=== PATIENT | female | born 1950 | race Caucasian/White ===

== ENCOUNTER 2016-10-25 10:24 | Emergency (ER) | payer OTHER ==
[2016-10-25 10:24] VITALS: BMI 32.9
[2016-10-25 11:08] VITALS: O2SAT 98
[2016-10-25] MEDS ORDERED: Sodium Chloride 0.9% 1,000 ML IV STA (11:27)
--- NOTE | 2016-10-25 11:36 | ED PDOC ---
Arrival/HPI - History of Present Illness Time/Duration: < week Symptom Onset: Gradual Symptom Course: Worsening Quality: Stabbing Severity Level: 8 Activities at Onset: Rest Context: Home <Lillian Davenport - Last Filed: 10/25/16 13:05> <Juancarlos Drummond DO - Last Filed: 10/25/16 13:57> - General Chief Complaint: Back Pain Time Seen by Provider: 10/25/16 10:50 - History of Present Illness Narrative History of Present Illness (Text): 10/25/16 11:30 66 F with PMHx of HTN, OA, DM1, hypothyroidism, and sarcoidosis on chronic steroids presents to [facility] ED with complaints of low back pain. Pt describes the pain as being sharp in quality, 8/10, non-radiating and right side dominant. Pt denies radiation into legs, denies numbness or tingling in lower extermities and denies bowel/bladder incontinence. Pt noted that for the past 4 days she has been experiencing progressively worsening LBP, for which she has been taking prednisone, ibuprofen, and naproxen without relief. Taking a deep breath exacerbates the pain, and shifting positions alleviates it. Pt has been lying in bed to experience relief. She denied undertaking any strenuous physical activities prior to development of symptoms. Pt admitted to generalized abdominal pains. Pt denied fever, chills, chest pains, palpitations, n/v/d/c or urinary symptoms. 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 Denied tobacco/etoh/ or drug abuse FamHx: noncontributory Meds: prednisone 10 mg, enalipril, ibuprofen, naproxen, metformin Allergies: ?toradol PMD; Dr. De La Cruz Pulrenea: Dr. Epperson (Lillian Davenport) Past Medical History - Infectious Disease Hx of Infectious Diseases: None - Cardiac Hx Hypertension: Yes - Pulmonary Hx Respiratory Disorders: Yes Other/Comment: SARCOIDOSIS - Neurological Other/Comment: NEUROPATHY - HEENT Hx HEENT Disorder: No - Endocrine/Metabolic Hx Diabetes Mellitus Type 2: Yes Hx Hypothyroidism: Yes - Musculoskeletal/Rheumatological Hx Osteoporosis: Yes - Gastrointestinal Hx Gastrointestinal Disorders: Yes Hx Gastroesophageal Reflux: Yes - Genitourinary/Gynecological Hx Genitourinary Disorders: No - Psychiatric Hx Depression: Yes Hx Substance Use: No - Anesthesia Hx Anesthesia: No Hx Anesthesia Reactions: No Hx Malignant Hyperthermia: No <Lillian Davenport - Last Filed: 10/25/16 13:05> Family/Social History Family/Social History: No Known Family HX Smoking Status: Never Smoked Hx Alcohol Use: No Hx Substance Use: No <Lillian Davenport - Last Filed: 10/25/16 13:05> Allergies/Home Meds <IssacLillian - Last Filed: 10/25/16 13:05> <Juancarlos Drummond DO - Last Filed: 10/25/16 13:57> Allergies/Adverse Reactions: Allergies ketorolac tromethamine [From Toradol] Allergy (Verified 10/25/16 10:35) HEADACHE pt reports insomnia after toradol Home Medications: Home Meds Medication Instructions Recorded Confirmed Levothyroxine Sodium [Synthroid] 75 mcg PO DAILY 12/03/15 10/25/16 metFORMIN [glucOPHAGE] 500 mg PO BID 12/03/15 10/25/16 Review of Systems - Review of Systems Constitutional: Normal Eyes: Normal ENT: Normal Respiratory: Normal Cardiovascular: Normal Gastrointestinal: Abdominal Pain. absent: Stool Changes Musculoskeletal: Back Pain Skin: Normal Neurological: Normal Endocrine: Normal Hemo/Lymphatic: Normal Psychiatric: Normal <Lillian Davenport - Last Filed: 10/25/16 13:05> Physical Exam Vital Signs Reviewed: Yes Temperature: Afebrile Blood Pressure: Normal Pulse: Regular Respiratory Rate: Normal Appearance: Positive for: Well-Appearing, Non-Toxic, Comfortable Pain Distress: None Mental Status: Positive for: Alert and Oriented X 3 - Systems Exam Head: Present: Atraumatic, Normocephalic Pupils: Present: PERRL Extroacular Muscles: Present: EOMI Conjunctiva: Present: Normal Mouth: Present: Moist Mucous Membranes Neck: Present: Normal Range of Motion Respiratory/Chest: Present: Clear to Auscultation, Good Air Exchange. No: Respiratory Distress, Accessory Muscle Use Cardiovascular: Present: Regular Rate and Rhythm, Normal S1, S2. No: Murmurs Abdomen: Present: Normal Bowel Sounds. No: Tenderness, Distention, Peritoneal Signs Back: Present: Paraspinal Tenderness, Pain with Leg Raise Upper Extremity: Present: Normal Inspection. No: Cyanosis, Edema Lower Extremity: Present: Normal Inspection. No: Edema Neurological: Present: GCS=15, CN II-XII Intact, Speech Normal Skin: Present: Warm, Dry, Normal Color. No: Rashes Psychiatric: Present: Alert, Oriented x 3, Normal Insight, Normal Concentration <Lillian Davenport - Last Filed: 10/25/16 13:05> Vital Signs Temp Pulse Resp BP Pulse Ox 10/25/16 13:50 78 17 131/80 98 10/25/16 13:00 79 18 144/77 98 10/25/16 12:17 98.3 F 77 18 132/77 98 10/25/16 11:45 78 17 136/79 98 10/25/16 11:13 97.8 F 76 18 136/66 98 10/25/16 10:36 97.8 F 76 17 136/66 98 Medical Decision Making Re-evaluation Time: 13:00 Reassessment Condition: Improving,but remains with symptoms - Lab Interpretations I have reviewed the lab results: Yes Interpretation: All labs normal - RAD Interpretation Batter Scaler: ED Physician - EKG Interpretation Interpreted by ED Physician: Yes <Lillian Davenport - Last Filed: 10/25/16 13:05> - Lab Interpretations I have reviewed the lab results: Yes <Juancarlos Drummond DO - Last Filed: 10/25/16 13:57> ED Course and Treatment: 10/25/16 11:40 66 F with PMHx of sarcoidosis, HTN, DM1 presents with LBP likely secondary to chronic steroid use for sarcoidosis. - CBC - CMP - UA - UCx - IVF - Morphine - Lumbosacral Xray - Reassess and dispo 10/25/16 13:05 Reassessed and pt found to be feeling better. Pt's routine labwork unremarkable. Vitals wnl. Pt's lmbosacral xray unremarkable no compression fractures noted. Pt likely to benefit from PT. We will recommend fu with PMD within 1 week. (Lillian Davenport) 10/25/16 13:00 Patient seen and examined with resident. Came up with treatment and disposition plan with resident. Impression: The patient is a 66 year old female who comes into the emergency department for evaluation of right sided lower back pain. Additional HPI details as noted by the resident. On examination the patient as some paraspinal tenderness with palpation. Differential Diagnosis include but are not limited to: fractures vs. chronic back pain Plan: -- EKG -- LS Spine X-ray -- Labs -- Urinalysis -- Morphine, Toradol and IV Fluids -- Reassess and disposition Progress Notes: EKG shows NSR at [address]/T wave changes, which is interpreted by me. X -ray is negative and lab work shows not acute findings. On re-evaluation, the patient feels better and is in no acute distress. Will discharge patient home. Results and plan were discussed with the patient, who expressed understanding. Patient is in agreement with plan to discharged home. Patient is stable for discharge. Patient was instructed to follow up with physician/clinic in 1-2 days or return if symptoms worsen or new concerning symptoms arise. (Juancarlos Drummond DO) - Lab Interpretations Lab Results: 10/25/16 11:30 10/25/16 11:30 Lab Results 10/25/16 11:30: WBC 7.2, RBC 4.64, Hgb 13.4, Hct 38.4, MCV 82.8, MCH 28.9, MCHC 34.9, RDW 12.8, Plt Count 219, MPV 9.3, Gran % 74.6 H, Lymph % (Auto) 21.6 L, [place] % (Auto) 2.9, Eos % (Auto) 0.8 L, Baso % (Auto) 0.1, Gran # 5.39, Lymph # 1.6, [place] # 0.2, Eos # 0.1, Baso # 0.01, Sodium 139, Potassium 4.2, Chloride 102 , Carbon Dioxide 26, Anion Gap 15, BUN 20, Creatinine 0.7, Est GFR ( Amer ) > 60, Est GFR (Non-Af Amer) > 60, Random Glucose 167 H, Calcium 9.4, Total Bilirubin 0.5, AST 24, ALT 15, Alkaline Phosphatase 54, Total Protein 7.2, Albumin 4.1, Globulin 3.1, Albumin/Globulin Ratio 1.3, Urine Color Yellow, Urine Appearance Clear, Urine pH 6.0, Ur Specific [place] 1.010, Urine Protein Negative, Urine Glucose (UA) Negative, Urine Ketones Negative, Urine Blood Negative, Urine Nitrate Negative, Urine Bilirubin Negative, Urine Urobilinogen 0.2, Ur Leukocyte Esterase Negative - RAD Interpretation Narrative RAD Interpretations (Text): 10/25/16 13:13 No acute lumbosacral pathology. No compression fractures noted. (Lillian Davenport) Radiology Orders: 10/25/16 11:27 LS SPINE AP/LAT [RAD] Stat - EKG Interpretation EKG Interpretation (Text): 10/25/16 13:12 NSR @ 73bpm no ST changes (Lillian Davenport) - Medication Orders Current Medication Orders: Discontinued Medications Sodium Chloride (Sodium Chloride 0.9%) 1,000 mls @ 999 mls/hr IV .Q1H1M STA Stop: 10/25/16 12:27 Last Admin: 10/25/16 11:50 Dose: 999 MLS/HR eMAR Start Stop Document 10/25/16 11:50 SF (Rec: 10/25/16 11:50 SF [id number]) Intravenous Solution Start Date 10/25/16 Start Time 11:50 End Date 10/25/16 End time 12:51 Total Infusion Time 61 Ketorolac Tromethamine (Toradol) 30 mg IVP STAT STA Stop: 10/25/16 11:28 Last Admin: 10/25/16 11:48 Dose: Morphine Sulfate (Morphine) 2 mg IVP STAT STA Stop: 10/25/16 11:43 Last Admin: 10/25/16 11:48 Dose: 2 MG MAR Pain Assessment Document 10/25/16 11:48 SF (Rec: 10/25/16 11:49 SF [facility] [id number]) Pain Reassessment Is this a pain reassessment? Yes Sleep Is patient sleeping during reassessment? No Presence of Pain Presence of Pain Yes Pain Scale Used Pain Scale Used Numeric Location Left, Right or Bilateral Bilateral Upper or Lower Lower Pain Location Body Site Abdomen Description Description Constant Intensity of Pain at present 9 IVP Administration Document 10/25/16 11:48 SF (Rec: 10/25/16 11:49 SF [facility] [id number]) Charges for Administration # of IVP Administrations 1 <Lillian Davenport - Last Filed: 10/25/16 13:05> - Scribe Statement The provider has reviewed the documentation as recorded by the Scribe <Juancarlos Drummond DO - Last Filed: 10/25/16 13:57> - Scribe Statement Tex Gardiner Provider Scribe Attestation: All medical record entries made by the Scribe were at my direction and personally dictated by me. I have reviewed the chart and agree that the record accurately reflects my personal performance of the history, physical exam, medical decision making, and the department course for this patient. I have also personally directed, reviewed, and agree with the discharge instructions and disposition. (Juancarlos Drummond DO) Disposition/Present on Arrival - Present on Arrival Any Indicators Present on Arrival: Yes History of DVT/PE: No History of Uncontrolled Diabetes: Yes Urinary Catheter: No History of Decub. Ulcer: No History Surgical Site Infection Following: None - Disposition Have Diagnosis and Disposition been Completed?: Yes Disposition Time: 13:00 <Lillian Davenport - Last Filed: 10/25/16 13:05> <Juancarlos Drummond DO - Last Filed: 10/25/16 13:57> - Disposition Diagnosis: Low back pain Patient Problems: Current Active Problems Problem Status Diagnosed Low back pain Acute Discharge Instructions (ExitCare): Acute Low Back Pain (ED) Prescriptions: oxyCODONE/Acetaminophen [Percocet 5/325 mg Tab] 1 ea PO Q8 PRN #9 tab PRN Reason: Pain, Severe (8-10) Referrals: Renny De La Cruz MD [Primary Care Provider] - Follow up with primary
[2016-10-25] MEDS ORDERED: Morphine 2 mg/ml ISec IVP STA (11:42)
[2016-10-25 11:54] LABS: ADD MANUAL DIFF? NO
[2016-10-25 11:58] LABS: URINE BILIRUBIN NEGATIVE (NEGATIVE); URINE BLOOD NEGATIVE (NEGATIVE); URINE GLUCOSE (UA) NEGATIVE (NEGATIVE); URINE KETONE NEGATIVE (NEGATIVE); URINE LEUKOCYTE ESTERASE NEGATIVE Leu/uL (NEGATIVE); URINE PROTEIN NEGATIVE mg/dL (<30 mg/dL); URINE UROBILINOGEN 0.2 E.U./dL (<1 E.U./dL)
[2016-10-25 11:59] LABS: BASO # 0.01 [, K/mm3] (0.0-2.0); BASO % 0.1 % (0.0-3.0); EOS # 0.1 (0.0-0.7); EOS % 0.8 % (1.5-5.0); GRAN # 5.39 (1.4-6.5); GRAN % 74.6 % (50.0-68.0); HEMATOCRIT 38.4 % (36.0-48.0); LYMPH # 1.6 (1.2-3.4); LYMPH % 21.6 % (22.0-35.0); MEAN CELL VOLUME 82.8 fL (80.0-105.0); MEAN CORPUSCULAR HEMOGLOBIN 28.9 pg (25.0-35.0); MEAN CORPUSCULAR HGB CONC 34.9 g/dl (31.0-37.0); MEAN PLATELET VOLUME 9.3 fl (7.0-11.0); MONO # 0.2 (0.1-0.6); MONO % 2.9 % (1.0-6.0); PLATELET COUNT 219 [, 10^3/uL] (120.0-450.0); RED CELL DISTRIBUTION WIDTH 12.8 % (11.5-14.5); WHITE BLOOD COUNT 7.2 [, 10^3/ul] (4.5-11.0)
[2016-10-25 12:01] LABS: URINE APPEARANCE CLEAR (CLEAR); URINE COLOR YELLOW (YELLOW)
[2016-10-25 12:11] LABS: ALB/GLOB RATIO 1.3 (1.1-1.8); ALKALINE PHOSPHATASE 54 U/L (38-133); ALT/SGPT 15 U/L (7-56); AST/SGOT 24 U/L (15-39); BILIRUBIN,TOTAL 0.5 mg/dL (0.2-1.3); BLOOD UREA NITROGEN 20 mg/dL (7-21); CALCIUM 9.4 mg/dL (8.4-10.5); CARBON DIOXIDE 26 mmol/L (21-33); CHLORIDE 102 mmol/L (98-107); GFR AFRICAN-AMERICAN > 60; GLUCOSE,RANDOM 167 mg/dL (70-110); POTASSIUM 4.2 mmol/L (3.6-5.0); SODIUM 139 mmol/L (132-148); TOTAL PROTEIN 7.2 g/dL (5.8-8.3)
[2016-10-25 12:18] VITALS: TEMP 98.3
[2016-10-25 13:51] VITALS: BP 131/80; PULSE 78; RESP 17
--- NOTE | 2016-10-25 13:54 | RAD ---
PROCEDURE: Radiographs of the Lumbar Spine. HISTORY: lumbosacral pain COMPARISON: No prior. FINDINGS: BONES: There is mild dextrocurvature in the lumbar spine. There are age indeterminate bilateral pars interarticularis defects at L5 with grade 1 anterior listhesis of L5 on S1. Lumbar lordosis is exaggerated. Vertebral height is normal. There is no acute fracture or bone destruction. DISC SPACES: There is mild multilevel degenerative disc disease with anterior spurring, reduced disc heights and multilevel facet arthropathy, worse at L5-S1. OTHER FINDINGS: There are no pathologic soft tissue calcifications. Both sacroiliac joints are normal. IMPRESSION: 1. 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 2. Mild multilevel degenerative disc disease, worse at L5-S1.
--- NOTE | 2016-10-25 18:34 | CARD ---
APPROVED REPORT EKG Measurement Heart [id number] ME [id number] [id number] <Conclusion> Normal sinus rhythm Normal ECG
== END 2016-10-25 13:51 | disposition home or self-care (01) ==
LOC: ED 10:24
DX: M54.5 Low back pain (principal); I10 Essential (primary) hypertension; E11.9 Type 2 diabetes mellitus without complications
CPT/HCPCS: 72100; 80053; 81003; 85025; 87086; 93005; 96361; 96374; 99284; J2270; J7040

== ENCOUNTER 2018-08-06 19:12 | Emergency (ER) | payer OTHER ==
[2018-08-06 19:26] VITALS: BMI 30.2
[2018-08-06 19:41] VITALS: RESP 18; TEMP 98.3
[2018-08-06] MEDS ORDERED: Albuterol-Ipratrop 3 mg / 0.5 (3 ml) UD IH STA (19:41)
--- NOTE | 2018-08-06 20:08 | ED PDOC ---
Arrival/HPI - General Chief Complaint: Cough, Cold, Congestion Time Seen by Provider: 08/06/18 19:18 Historian: Patient - History of Present Illness Narrative History of Present Illness (Text): 08/06/18 19:40 Elizabeth Schaffer is a 67 year old female, whose past medical history includes hypertension and diabetes, who presents to the emergency department complaining of runny nose, cough, and sore throat. Patient denies any history of fever. Patient notes she recently completed a course of Zithromax. Patient denies any chest pain, shortness of breath, nausea, vomiting, headache, or any other complaints. Symptom Onset: Gradual Symptom Course: Unchanged Activities at Onset: Light Context: Home Past Medical History - Provider Review Nursing Documentation Reviewed: Yes - Infectious Disease Hx of Infectious Diseases: None - Cardiac Hx Cardiac Disorders: Yes Hx Hypertension: Yes Hx Peripheral Vascular Disease: Yes (VARICOSE VEINS) - Pulmonary Hx Respiratory Disorders: Yes Hx Chronic Obstructive Pulmonary Disease (COPD): Yes Hx Sleep Apnea: Yes (DUE TO SARCOIDOSIS) Other/Comment: CPAP AND OXYGEN EVERY NIGHT - Neurological Hx Neurological Disorder: No - HEENT Hx HEENT Disorder: No - Renal Hx Renal Disorder: No Hx Renal Failure: No - Endocrine/Metabolic Hx Endocrine Disorders: Yes Hx Diabetes Mellitus Type 2: Yes Hx Hypothyroidism: Yes Other/Comment: SARCOIDOSIS - Hematological/Oncological Hx Blood Disorders: No Hx Anemia: No Hx Blood Transfusions: No - Integumentary Hx Dermatological Disorder: Yes Other/Comment: DERMATITIS - Musculoskeletal/Rheumatological Hx Arthritis: Yes Hx Back Pain: Yes Hx Falls: No Hx Fractures: No Hx Herniated Disk: Yes Hx Osteoporosis: Yes - Gastrointestinal Hx Gastrointestinal Disorders: Yes Hx Gastritis: Yes Hx Gastroesophageal Reflux: Yes Hx Hemorrhoids: Yes - Genitourinary/Gynecological Hx Genitourinary Disorders: No - Psychiatric Hx Psychophysiologic Disorder: Yes Hx Depression: Yes Hx Substance Use: No - Surgical History Hx Tubal Ligation: Yes Other/Comment: DIAGNOSTIC BIOPSY FOR SARCOIDOSIS - Anesthesia Hx Anesthesia: Yes Hx Anesthesia Reactions: No Family/Social History - Physician Review Nursing Documentation Reviewed: Yes Family/Social History: Unknown Family HX Smoking Status: Never Smoked Hx Alcohol Use: No Hx Substance Use: No Allergies/Home Meds Allergies/Adverse Reactions: Allergies ketorolac tromethamine [From Toradol] Allergy (Verified 08/06/18 19:25) HEADACHE pt reports insomnia after toradol Home Medications: Home Meds Medication Instructions Recorded Confirmed Levothyroxine Sodium [Synthroid] 75 mcg PO DAILY 12/03/15 02/10/17 metFORMIN [glucOPHAGE] 500 mg PO BID 12/03/15 02/10/17 Calcium Carbonate/Vitamin D3 1 tab PO DAILY 02/10/17 02/10/17 [Os-Karthik Extra D3 500 mg-600 Iu] DULoxetine [Cymbalta] 30 mg PO DAILY 02/10/17 02/10/17 Enalapril Maleate [Vasotec] 5 mg PO DAILY 02/10/17 02/10/17 Ibuprofen [Motrin Tab] 800 mg PO BID PRN 02/10/17 02/10/17 Review of Systems - Physician Review All systems were reviewed & negative as marked: Yes - Review of Systems Constitutional: Normal. absent: Fevers Eyes: Normal ENT: Sore Throat, Rhinorrhea Respiratory: Cough Cardiovascular: Normal. absent: Chest Pain Gastrointestinal: Normal. absent: Abdominal Pain, Diarrhea, Nausea, Vomiting Genitourinary Female: Normal. absent: Dysuria, Frequency, Hematuria, Urine Output Changes Musculoskeletal: Normal. absent: Back Pain, Neck Pain Skin: Normal. absent: Rash Neurological: Normal. absent: Headache, Dizziness Endocrine: Normal Hemo/Lymphatic: Normal Psychiatric: Normal Physical Exam Vital Signs Reviewed: Yes Vital Signs Temp Pulse Resp BP Pulse Ox 08/06/18 19:41 98.3 F 66 18 157/113 H 96 Temperature: Afebrile Blood Pressure: Hypertensive Pulse: Regular Respiratory Rate: Normal Appearance: Positive for: Well-Appearing, Non-Toxic, Comfortable Pain Distress: None Mental Status: Positive for: Alert and Oriented X 3 - Systems Exam Head: Present: Atraumatic, Normocephalic Pupils: Present: PERRL Extroacular Muscles: Present: EOMI Conjunctiva: Present: Normal Mouth: Present: Moist Mucous Membranes Pharnyx: Present: ERYTHEMA (Erythema to posterior pharynx) Nose (External): Present: Atraumatic Nose (Internal): Present: Rhinorrhea Neck: Present: Normal Range of Motion Respiratory/Chest: Present: Rhonchi. No: Respiratory Distress, Accessory Muscle Use Cardiovascular: Present: Regular Rate and Rhythm, Normal S1, S2. No: Murmurs Abdomen: No: Tenderness, Distention, Peritoneal Signs Back: Present: Normal Inspection Upper Extremity: Present: Normal Inspection. No: Cyanosis, Edema Lower Extremity: Present: Normal Inspection. No: Edema Neurological: Present: GCS=15, CN II-XII Intact, Speech Normal Skin: Present: Warm, Dry, Normal Color. No: Rashes Psychiatric: Present: Alert, Oriented x 3, Normal Insight, Normal Concentration Medical Decision Making ED Course and Treatment: 08/06/18 19:40 Impression: 67 year old female complaining of sore throat, runny nose, and cough. Plan: -- Albuterol -- Rapid influenza -- Reassess and disposition Prior Visits: Notes and results from previous visits were reviewed. Progress Notes: 08/06/18 22:04 Reviewed EKG, NSR at 84 bpm. Possible inferior infarct. Non-specific ST/T wave changes. - EKG Interpretation Interpreted by ED Physician: Yes Type: 12 lead EKG - Medication Orders Current Medication Orders: Discontinued Medications Albuterol/Ipratropium (Duoneb 3 Mg/0.5 Mg (3 Ml) Ud) 3 ml IH ONCE STA Stop: 08/06/18 19:42 Last Admin: 08/06/18 19:45 Dose: 3 ml - Scribe Statement The provider has reviewed the documentation as recorded by the Scribe Sydnie Trujillo All medical record entries made by the Scribe were at my direction and personally dictated by me. I have reviewed the chart and agree that the record accurately reflects my personal performance of the history, physical exam, medical decision making, and the department course for this patient. I have also personally directed, reviewed, and agree with the discharge instructions and disposition. Disposition/Present on Arrival - Present on Arrival Any Indicators Present on Arrival: No History of DVT/PE: No History of Uncontrolled Diabetes: Yes Urinary Catheter: No History of Decub. Ulcer: No History Surgical Site Infection Following: None - Disposition Have Diagnosis and Disposition been Completed?: Yes Diagnosis: Bronchitis, Flu-like symptoms, Pharyngitis Disposition: HOME/ ROUTINE Disposition Time: 23:31 Patient Plan: Discharge Condition: GOOD Discharge Instructions (ExitCare): Acute Bronchitis, Adult (DC), Sore Throat, Adult (DC) Additional Instructions: Rest/Drink plenty of liquids/take meds as prescribed/follow up with your doctor this week Prescriptions: Amoxicillin/Clavulanate [Augmentin 875 MG-125 MG] 1 tab PO BID #20 tab Oseltamivir Cap [Tamiflu] 75 mg PO BID #10 cap Benzonatate [Tessalon Perles] 100 mg PO TID PRN #21 sgl PRN Reason: Cough Referrals: Raul Youngblood Req, [Primary Care Provider] - Follow up with primary Forms: [email or web address] (Hebrew)
[2018-08-06 22:23] LABS: HEMOGLOBIN 13.7 g/dL (12.0-16.0); MEAN CELL VOLUME 83.1 fl (80.0-105.0); MEAN CORPUSCULAR HEMOGLOBIN 28.7 pg (25.0-35.0); MEAN CORPUSCULAR HGB CONC 34.5 g/dl (31.0-37.0); MEAN PLATELET VOLUME 9.2 fl (7.0-11.0); RBC 4.78 10^6/uL (3.5-6.1); RED CELL DISTRIBUTION WIDTH 12.9 % (11.5-14.5); WHITE BLOOD COUNT 5.5 10^3/uL (4.5-11.0)
[2018-08-06 22:31] LABS: ALB/GLOB RATIO 1.6 (1.1-1.8); ALBUMIN 4.5 g/dL (3.0-4.8); ALT/SGPT 34 U/L (7-56); AST/SGOT 28 U/L (14-36); BLOOD UREA NITROGEN 19 mg/dL (7-21); CALCIUM 9.4 mg/dL (8.4-10.5); GFR NON-AFRICAN AMERICAN > 60
[2018-08-06 22:33] LABS: INR 1.02; PARTIAL THROMBOPLASTIN TIME 29.5 Seconds (25.1-36.5); PROTHROMBIN TIME 11.6 SECONDS (9.4-12.5)
[2018-08-06 22:42] LABS: TROPONIN I < 0.01 ng/mL
[2018-08-06] MEDS ORDERED: Amoxicillin-Clav 875-125 mg Tab PO STA (23:29)
[2018-08-07 00:12] VITALS: BP 135/78; PULSE 68; O2SAT 100
--- NOTE | 2018-08-07 09:11 | RAD ---
Date of service: 08/06/2018 HISTORY: cough COMPARISON: No prior. FINDINGS: LUNGS: No active pulmonary disease. PLEURA: No significant pleural effusion identified, no pneumothorax apparent. CARDIOVASCULAR: No aortic atherosclerotic calcification present. Normal cardiac size. No pulmonary vascular congestion. OSSEOUS STRUCTURES: No significant abnormalities. VISUALIZED UPPER ABDOMEN: Normal. OTHER FINDINGS: None. IMPRESSION: No active disease.
--- NOTE | 2018-08-07 09:53 | CARD ---
APPROVED REPORT Date of service: 08/06/2018 EKG Measurement Heart [id number] <Conclusion> Normal sinus rhythm Possible Inferior infarct, age undetermined Abnormal ECG
== END 2018-08-06 23:45 | disposition home or self-care (01) ==
LOC: ED 19:12
DX: J20.9 Acute bronchitis, unspecified (principal); J11.1 Influenza due to unidentified influenza virus with other respiratory manifestations; I10 Essential (primary) hypertension; E11.9 Type 2 diabetes mellitus without complications